=== PATIENT | male | born 1980 | race Two or more races ===

== ENCOUNTER 2024-04-20 11:45 | Emergency (ER) | payer OTHER ==
[~2024-04-20] VITALS: Ht 175.3 cm; Wt 90.9 kg
[2024-04-20] MEDS ORDERED: CEPH500C PO (13:15)
[2024-04-20] MEDS ORDERED: NAPR-746 PO (13:15)
[2024-04-20 13:16] VITALS: BP 140/90; PULSE 90; RESP 18; TEMP 98.9; O2SAT 97
== END 2024-04-20 13:33 | disposition home or self-care (01) ==
LOC: ER 11:45 → EDBD 11:45 → ER 13:32
DX: S51.832A Puncture wound without foreign body of left forearm, initial encounter (principal); I10 Essential (primary) hypertension; Z90.49 Acquired absence of other specified parts of digestive tract; Z88.0 Allergy status to penicillin; Z79.899 Other long term (current) drug therapy; X58.XXXA Exposure to other specified factors, initial encounter; Y93.89 Activity, other specified; Y92.89 Other specified places as the place of occurrence of the external cause; Y99.8 Other external cause status

== ENCOUNTER 2024-05-17 15:42 | Emergency (ER) | payer OTHER ==
[~2024-05-17] VITALS: Ht 180.3 cm; Wt 83.4 kg
[~2024-05-17 15:42] MED LIST: CEPH500C PO; NAPR-746 PO
[2024-05-17 16:05] VITALS: BP 145/99; PULSE 109; RESP 18; O2SAT 99
--- NOTE | 2024-05-17 17:34 | ED.PDOC ---
History of Present Illness HPI Comments 43 yo male here for staple removal and requesting ortho referral for a clavicle fracture that he sustained approx 1.5 weeks ago. Patient had 7 cyrus placed to top of head. No concerns, healing well, not bleeding. No neuro complaints. Does not have a PMD at this time. Tdap utd. Chief Complaint: Wound Check Time Seen by MD: 15:57 Primary Care Provider: " I DON'T HAVE ONE" Allergies: Coded Allergies: Penicillins (Verified Allergy, Unknown, 04/20/24) Home Meds Active Scripts Naproxen (Naproxen) 500 Mg Tab, 500 MG PO BID, #30 TAB Prov:NAVIN DONNELLY 04/20/24 Cephalexin Monohydrate (Cephalexin) 500 Mg Cap, 2 CAP PO BID, #40 CAP Prov:NAVIN DONNELLY 04/20/24 Information Source: Patient Mode of Arrival: Ambulatory Prehospital treatment: None Past Medical History PAST MEDICAL HISTORY: HTN Surgical History: Appendectomy Family History Family History: Reviewed,noncontributory to illness Social History Smoker: Non-Smoker Alcohol: Denies ETOH Use Drugs: Denies Drug Use Lives In: Home Physical Exam General Appearance: No Apparent Distress, Normal HEENT: Head (approx 2 cm lac to top of head parietal area, well healed, [address], no erythema or discharge, no swelling), Normal ENT Inspection, Pharynx Normal, TMs Normal Neck: Full Range of Motion, Non-Tender, Normal, Normal Inspection Respiratory: Chest Non-Tender, Lungs Clear, No Accessory Muscle Use, No Respiratory Distress, Normal Breath Sounds Cardiovascular: No Edema, No JVD, No Murmur, No Gallop, Normal Peripheral Pulses, Regular Rate/Rhythm Breast Exam: Deferred Gastrointestinal: No Organomegaly, Non Tender, No Pulsatile Mass, Normal Bowel Sounds, Soft Genitalia: Deferred Pelvic: Deferred Rectal: Deferred Extremities: No calf tenderness, Normal capillary refill, Normal inspection, Normal range of motion, Non-tender, No pedal edema Musculoskeletal : Apperance: Normal Neurologic: Alert, hospice admitting clerk II-XII nml as Tested, No Motor Deficits, Normal Affect, Normal Mood, No Sensory Deficits, Other (left clavicle with deformity, no skin tenting, no open wound, patient has FROM of left elbow wrist and fingers, SILT throughout, 2+ radial pulse, soft compartments) Cerebellar Function: Normal Reflexes: Normal Skin: Dry, Normal Color, Warm Lymphatic: No Adenopathy Was a procedure done? Was a procedure done?: No Differential Dx Considerations may include: fracture, dislocation, septic joint, compartment syndrome, neurovascular compromise, skin ischemia, cellulitis, abscess, necrotizing soft tissue infection X-Ray, Labs, Meds, VS Vital Signs Date Time Temp Pulse Resp B/P (MAP) Pulse Ox O2 Delivery O2 Flow Rate FiO2 05/17/24 16:05 98.4 109 18 145/99 (114) 99 X-Ray, Labs, Meds, VS Comment 43 yo male here today for staple removal and ortho referral. Slick removed without complication. No concerns for infection. Tdap UTD. Ortho referral placed. No emergent complaints at this time. Patient instructed on the process of getting a PCP as well. Provided return precautions for worsening pain, PO intolerance, fevers, numbness, weakness, swelling, lacerations, any other concerning symptoms. Time of 1ST Reevaluation: 17:32 Reevaluation 1ST: Improved Patient Education/Counseling: Diagnosis, Treatment, Prognosis, Need For Follow Up Family Education/Counseling: No Family Present Departure 1 Departure Time of Disposition: 17:32 Impression: Primary Impression: Removal of staple Additional Impression: Fracture of unspecified part of left clavicle, sequela Disposition: 01 HOME / SELF CARE / HOMELESS Condition: Stable Referrals: ALEAH CABRALES MD Critical Care Note Critical Care Time?: No Stability Stability form required: No Heart Score Heart Score: Heart Score Response (Comments) Value History N/A 0 EKG N/A 0 Age N/A 0 Risk Factors N/A 0 Troponin N/A 0 Total 0 DELMA SERNA MD May 17, 2024 17:34
== END 2024-05-17 20:26 | disposition home or self-care (01) ==
LOC: ER 15:42
DX: S42.002S Fracture of unspecified part of left clavicle, sequela (principal); S01.81XD Laceration without foreign body of other part of head, subsequent encounter; I10 Essential (primary) hypertension; Z48.02 Encounter for removal of sutures; Z90.49 Acquired absence of other specified parts of digestive tract; Z88.0 Allergy status to penicillin; Z79.899 Other long term (current) drug therapy; X58.XXXS Exposure to other specified factors, sequela

== ENCOUNTER 2024-05-26 11:43 | Emergency (ER) | payer OTHER ==
[~2024-05-26] VITALS: Ht 177.8 cm; Wt 83.9 kg
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
--- NOTE | 2024-05-26 12:50 | DVH ---
CLINICAL INFORMATION: 43 years old, Male; INJURY. TECHNIQUE: 2 views of the left clavicle were obtained. COMPARISON: None FINDINGS: Acute, comminuted fracture of the mid shaft of the left clavicle with mild angulation apex superiorly and small displaced fracture fragments along the superior aspect of the fracture site. No significant abnormality identified at the acromioclavicular joint or sternoclavicular joint. Moderate soft tissue swelling adjacent to the fracture site. IMPRESSION: Acute left clavicle fracture.
[2024-05-26 13:27] VITALS: BP 129/90; PULSE 97; RESP 19; TEMP 97.8; O2SAT 98
== END 2024-05-26 13:28 | disposition home or self-care (01) ==
LOC: ER 11:43
DX: S42.025A Nondisplaced fracture of shaft of left clavicle, initial encounter for closed fracture (principal); I10 Essential (primary) hypertension; Z79.899 Other long term (current) drug therapy; Z90.49 Acquired absence of other specified parts of digestive tract; Z88.0 Allergy status to penicillin; V89.2XXA Person injured in unspecified motor-vehicle accident, traffic, initial encounter; Y93.I9 Activity, other involving external motion; Y92.488 Other paved roadways as the place of occurrence of the external cause; Y99.8 Other external cause status
CPT/HCPCS: 73000